=== PATIENT | female | born 1990 | race Caucasian/White ===

== ENCOUNTER 2022-08-14 08:19 | Outpatient (RCR) | payer OTHER, SELFPAY | END 2022-08-22 14:00 | disposition home or self-care (01) | LOC: PT 08:19 | PROVIDERS: PCP Nurse Practitioner Family; Visit Provider Podiatrist Foot & Ankle Surgery | DX: M72.2 Plantar fascial fibromatosis (principal) | CPT/HCPCS: 97110; 97140 ==

== ENCOUNTER 2022-08-27 21:15 | Emergency (ER) | payer OTHER, SELFPAY ==
[2022-08-27 21:20] VITALS: BP 138/95; PULSE 82; RESP 14; TEMP 36.8; O2SAT 98; BMI 38.3
--- NOTE | 2022-08-27 21:28 | XR_ITS ---
[address] [address] Patient Name: GIBRAN HAINES MRN: [id number] date: 1990 Sex: F Assigned Patient Location: ER Current Patient Location: ED.MAIN Accession/Order Number: [id number] Exam Date: 08/27/2022 21:40 Report Date: 08/27/2022 22:09 At the request of: SYLVIA BONILLA Procedure: XR shoulder RT min 2V EXAM: XR shoulder RT min 2V HISTORY: Shoulder pain COMPARISON: None. TECHNIQUE: 3 views FINDINGS: No osseous lesion, fracture, dislocation or subluxation. Joint spaces are normal. No visualized effusion. No visualized soft tissue edema. IMPRESSION: Normal x-rays Electronically authenticated by: JANETT RIVERA Date: 08/27/2022 22:09
--- NOTE | 2022-08-27 22:30 | ED.UPPEXIN1 ---
HPI - Extremity Injury (Upper) General Chief Complaint: Extremity Injury, Upper Stated Complaint: SHOULDER PAIN Time Seen by Provider: 08/27/22 22:29 Source: patient Mode of arrival: walk-in Limitations: physical limitation History of Present Illness HPI narrative: patient got tripped up by her dog and fell, injuring the right shoulder when she landed on it with her arm tucked against her body. The occurred just before 5pm today and she took some excedrin for the pain. She went to work and while she could move the right shoulder, she had pain so her boss let her leave early to come here to get evaluated. No head or neck injury. No back pain. Related Data Home Medications Medication Instructions Recorded Confirmed cetirizine 10 mg tablet 10 mg PO DAILY 08/27/22 08/27/22 phentermine 37.5 mg capsule 37.5 mg PO DAILY 08/27/22 08/27/22 Allergies Allergy/AdvReac Type Severity Reaction Status Date / Time No Known Drug Allergies Allergy Verified 08/27/22 21:28 [facility] Social History Smoking status: Current every day smoker Exam Narrative Exam Narrative: Nurses note and vital signs reviewed and patient is not hypoxic. afebrile General: The patient appears well and in no apparent distress. Patient is resting comfortably on cart. GCS = 15. Skin: Warm, dry, no pallor noted. Head: Normocephalic, atraumatic Neck: Supple, trachea mid-line. Full ROM and no cervical spinal tenderness. Eyes: PERRLA, EOMI Cardiovascular: normal peripheral perfusion Respiratory: Patient is in no distress, no accessory muscle use Chest Wall: no tenderness, no flail chest, contusion, abrasion, or signs of trauma. Back: No thoracic or lumbar tenderness to palpation. right posterior shoulder soft tissue tenderness. Musculoskeletal: tenderness along the distal right clavicle and the anterior and superior portion of the right shoulder. no additional sign of long bone fracture, no right elbow or wrist tenderness or swelling. Pain when she moves the right shoulder into flexion and abduction. Moves remaining extremities in all modalities with 5/5 strength. 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 Psychiatric: Cooperative Constitutional Vital Signs - 24 hr 08/27/22 21:20 Temperature 98.2 F Pulse Rate [Monitor] 82 Respiratory Rate 14 Blood Pressure [Left Arm] 138/95 H Pulse Oximetry 98 Oxygen Delivery Method Room Air Course Vital Signs Vital signs: Vital Signs Temperature 98.2 F 08/27/22 21:20 Pulse Rate 82 08/27/22 21:20 Respiratory Rate 14 08/27/22 21:20 Blood Pressure 138/95 H 08/27/22 21:20 Pulse Oximetry 98 08/27/22 21:20 Oxygen Delivery Method Room Air 08/27/22 21:20 Temperature 98.2 F 08/27/22 21:20 Pulse Rate 82 08/27/22 21:20 Respiratory Rate 14 08/27/22 21:20 Blood Pressure 138/95 H 08/27/22 21:20 Pulse Oximetry 98 08/27/22 21:20 Oxygen Delivery Method Room Air 08/27/22 21:20 MDM - Extremity Injury (Upper) Imaging Data right shoulder xray: Radiologist's impression: Patient Name: GIBRAN HAINES MRN: [facility]:[id number] date: 1990 Sex: F Assigned Patient Location: ER Current Patient Location: ED.MAIN Accession/Order Number: [id number] Exam Date: 08/27/2022 21:40 Report Date: 08/27/2022 22:09 At the request of: SYLVIA BONILLA Procedure: XR shoulder RT min 2V EXAM: XR shoulder RT min 2V HISTORY: Shoulder pain COMPARISON: None. TECHNIQUE: 3 views FINDINGS: No osseous lesion, fracture, dislocation or subluxation. Joint spaces are normal. No visualized effusion. No visualized soft tissue edema. IMPRESSION: Normal x-rays Electronically authenticated by: JANETT RIVERA Date: 08/27/2022 22:09 Discharge Plan Discharge Chief Complaint: Extremity Injury, Upper Clinical Impression: Sprain of right shoulder Patient Disposition: Home, Self-Care Time of Disposition Decision: 22:41 Prescriptions / Home Meds: No Action cetirizine 10 mg tablet 10 mg PO DAILY phentermine 37.5 mg capsule 37.5 mg PO DAILY Instructions: Shoulder Sprain (ED) Stand Alone Forms: Portal Instructions Referrals: HERNANDO BOLAND [Primary Care Provider] - 1 week
== END 2022-08-27 22:57 | disposition home or self-care (01) ==
PROVIDERS: Emergency Provider Emergency Medicine; PCP Nurse Practitioner Family
DX: S43.401A Unspecified sprain of right shoulder joint, initial encounter (principal); W01.0XXA Fall on same level from slipping, tripping and stumbling without subsequent striking against object, initial encounter; F17.210 Nicotine dependence, cigarettes, uncomplicated
CPT/HCPCS: 73030; 99283

== ENCOUNTER 2023-06-15 16:24 | Outpatient (OUT) | payer OTHER, SELFPAY ==
--- NOTE | 2023-06-15 | XR_ITS ---
The [address] [address] Patient Name: GIBRAN HAINES MRN: [id number] date: 1990 Sex: F Assigned Patient Location: [facility] Current Patient Location: Accession/Order Number: [id number] Exam Date: 06/15/2023 16:30 Report Date: 06/17/2023 07:08 At the request of: CATY CHISHOLM Procedure: XR abdomen 1V EXAMINATION: XR abdomen 1V HISTORY: bilateral kidney stones COMPARISON: XR KUB 12/13/2021 FINDINGS: KIDNEY/URETER - RIGHT: No visible renal or ureteral calcifications. KIDNEY/URETER - LEFT: Tiny calcifications suspected within mid body of kidney. PELVIS: No visible ureteral stones. BOWEL: No abnormal dilation or deviation. BONES: No acute abnormality. OTHER: Negative. No abnormal gaseous collections. XR/XR abdomen 1V IMPRESSION: 1. Grossly stable left nephrolithiasis. Evaluation is limited by dense overlying bowel content. Electronically authenticated by: MISBAH DEGROOT Date: 06/17/2023 07:08
== END 2023-06-15 16:25 | disposition home or self-care (01) ==
LOC: RAD 16:28
PROVIDERS: PCP Nurse Practitioner Family; Visit Provider Urology
DX: N20.0 Calculus of kidney (principal)
CPT/HCPCS: 74018

== ENCOUNTER 2023-08-06 20:01 | Outpatient (REF) | payer OTHER, SELFPAY ==
[2023-08-06 20:34] LABS: Internal Control Within Normal Limits; Occult Blood Negative
[2023-08-12 17:09] LABS: Ova + Parasite Exam Final report (.)
== END 2023-08-06 20:02 | disposition home or self-care (01) ==
LOC: LAB 20:01
PROVIDERS: PCP Nurse Practitioner Family; Visit Provider Nurse Practitioner Family
DX: K92.1 Melena (principal)
CPT/HCPCS: 87177; 87209; G0328

== ENCOUNTER 2023-10-12 17:37 | Outpatient (OUT) | payer OTHER, SELFPAY ==
--- NOTE | 2023-10-12 17:56 | XR_ITS ---
The [address] [address] Patient Name: GIBRAN HAINES MRN: [id number] date: 1990 Sex: F Assigned Patient Location: [facility] Current Patient Location: Accession/Order Number: [id number] Exam Date: 10/12/2023 18:00 Report Date: 10/13/2023 08:20 At the request of: HERNANDO BOLAND Procedure: XR lumbar spine 2-3V EXAMINATION: XR thoracic spine 2V, XR lumbar spine 2-3V HISTORY: Back Pain M54.9 COMPARISON: No relevant comparison available. FINDINGS: BONES: Normal alignment of the thoracic and lumbar vertebral bodies with no acute fracture or spondylolisthesis. Mild degenerative spondylosis and facet osteoarthropathy DISC SPACES: Normal. No significant disc height narrowing, subluxation, or endplate abnormality. PARASPINOUS: Negative. No paraspinous abnormality is seen. OTHER: Negative. XR/XR lumbar spine 2-3V IMPRESSION: Mild degenerative changes thoracic and lumbar spine Electronically authenticated by: JANETT OTT Date: 10/13/2023 08:20
--- NOTE | 2023-10-12 17:56 | XR_ITS ---
The [place] [id number] Patient Name: GIBRAN HAINES MRN: [id number] date: 1990 Sex: F Assigned Patient Location: [facility] Current Patient Location: Accession/Order Number: [id number] Exam Date: 10/12/2023 18:00 Report Date: 10/13/2023 08:20 At the request of: HERNANDO BOLAND Procedure: XR thoracic spine 2V EXAMINATION: XR thoracic spine 2V, XR lumbar spine 2-3V HISTORY: Back Pain M54.9 COMPARISON: No relevant comparison available. FINDINGS: BONES: Normal alignment of the thoracic and lumbar vertebral bodies with no acute fracture or spondylolisthesis. Mild degenerative spondylosis and facet osteoarthropathy DISC SPACES: Normal. No significant disc height narrowing, subluxation, or endplate abnormality. PARASPINOUS: Negative. No paraspinous abnormality is seen. OTHER: Negative. XR/XR thoracic spine 2V IMPRESSION: Mild degenerative changes thoracic and lumbar spine Electronically authenticated by: JANETT OTT Date: 10/13/2023 08:20
== END 2023-10-12 17:38 | disposition home or self-care (01) ==
PROVIDERS: PCP Nurse Practitioner Family; Visit Provider Nurse Practitioner Family
DX: M54.9 Dorsalgia, unspecified (principal); M51.35 Other intervertebral disc degeneration, thoracolumbar region
CPT/HCPCS: 72070; 72100

== ENCOUNTER 2023-12-07 08:23 | Outpatient (OUT) | payer OTHER, SELFPAY ==
--- OUTSIDE RECORDS SUMMARY | 2023-12-07 08:43 | XMS_ITS | CCD ---
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 Stephanie Hastings EGFR-NON AF [place] >60 Normal >=60 [facility] Comment on above: Performed By: #### L IPID, CMP, T7, TSH #### [facility] [address] [place] [address] [address] Stephanie Hastings Globulin (S) [Mass/Vol] 3.7 g/dL Normal [facility] Comment on above: Performed By: #### L IPID, CMP, T7, TSH #### [facility] [address] [place] [address] [address] Stephanie Hastings Glucose [Mass/Vol] 92 mg/dL Normal 74-106 [facility] Comment on above: Performed By: #### L IPID, CMP, T7, TSH #### [facility] [address] [place] [address] [address] Stephanie Hastings Potassium [Moles/Vol] 4.0 mmol/L Normal 3.5-5.1 [facility] Comment on above: Performed By: #### L IPID, CMP, T7, TSH #### [facility] [address] [place] [address] Dr. Stephanie Hastings Protein [Mass/Vol] 7.2 g/dL Normal 6.4-8.2 [facility] Comment on above: Performed By: #### L IPID, CMP, T7, TSH #### [facility] [address] [place] [address] Dr. Stephanie Hastings Sodium [Moles/Vol] 141 mmol/L Normal 136-145 [facility] Comment on above: Performed By: #### L IPID, CMP, T7, TSH #### [facility] [address] [place] [address] Dr. Stephanie Hastings Urea nitrogen [Mass/Vol] 10.0 mg/dL Normal 7.0-18.0 [facility] Comment on above: Performed By: #### L IPID, CMP, T7, TSH #### [facility] [address] [place] [address] Dr. Stephanie Hastings Urea nitrogen/Creatinine [Mass ratio] 16.7 mg/mg Normal [facility] Comment on above: Performed By: #### L IPID, CMP, T7, TSH #### [facility] [address] [place] [address] Dr. Stephanie Hastings TSHon 08-05-2022 TSH 0.920 uIU/mL Normal 0.358-3.740 [facility] Comment on above: Performed By: #### L IPID, CMP, T7, TSH #### [facility] [address] [place], [place] [address] Dr. Stephanie Hastings VITAMIN D 25 OHon 08-05-2022 VIT D 25-OH 18.0 ng/mL Normal [facility] Comment on above: Performed By: #### L IPID, CMP, T7, TSH #### [facility] [address] [place], [place] [address] Dr. Stephanie Hastings VIT D RANGES SEE BELOW Normal [facility] Comment on above: Result Comment: <20 ng/mL Vit D deficient 20 - <30 ng/mL Vit D insufficient 30 - 100 ng/mL Vit D sufficient >100 ng/mL Potential Toxicity Performed By: #### L IPID, CMP, T7, TSH #### [facility] [address] [place], [place] [address] Dr. Stephanie Hastings XR CHEST 2 Von 08-05-2022 XR CHEST 2 V EXAM: XR CHEST 2 V HISTORY: Nicotine dependence COMPARISON: None. TECHNIQUE: PA and lateral views of the chest. FINDINGS: The cardiomediastinal silhouette is normal. No focal consolidation is identified. There is no pneumothorax. No pleural effusion is noted. The osseous structures are intact. IMPRESSION: No acute cardiopulmonary process. Electronically authenticated by: HEMANTH MEJÍA Date: 2022-08-05 10:55 Normal [facility] MRI ANKLE LT WO CONon 2022 MRI ANKLE LT WO CON HISTORY: Chronic lef t heel pain for the past 6 months. No known injury. MRI ANKLE LT WO CON: 07/02/2022 10:19 AM EDT COMPARISON: Radiographs of the left foot 03/20/2022. TECHNIQUE: Multiplanar, multisequence MRI images of the ankle were obtained without contrast. FINDINGS: A few images are slightly degraded by motion artifact. LIGAMENTS: The anterior talofibular ligament appears within normal limits. The calcaneofibular ligament, posterior talofibular ligament, and distal tibiofibular ligaments appear within normal limits. The deltoid ligament complex appears within normal limits. TENDONS: There is mild thickening and intermediate signal intensity of the Achilles tendon. The other tendons of the ankle appear within normal limits. SINUS TARSI AND TARSAL TUNNEL: No space-occupying mass is seen in the tarsal tunnel or the sinus tarsi. BONES AND JOINTS: The bone marrow signal intensity is age appropriate. No unstable osteochondral defect of the tibiotalar joint is identified. There is a small os trigonum posterior to the body of the talus, but no bone marrow edema-like signal is seen in this region. There is a small amount of fluid signal intensity within a joint recess posterior to the posterior subtalar joint in this region. PLANTAR FASCIA: There is a moderate-sized plantar calcaneal enthesophyte again seen. There appears to be mild thickening and intermediate signal intensity of the central band of the plantar fascia at its attachment to the calcaneus in this region. SOFT TISSUES: No significant soft tissue swelling is seen. IMPRESSION: 1. There appears to be probable mild plantar fasciitis involving the proximal portion of the central band of the plantar fascia at its attachment to the calcaneus where there is a moderate-sized plantar calcaneal enthesophyte. 2. Mild tendinopathy of the Achilles tendon. 3. No ligament injury is seen. 4. There is a small os trigonum, but no bone marrow edema-like signal is seen in this region and this is of uncertain clinical significance. Electronically authenticated by: LARRY ALMEIDA Date: 2022-07-03 11:01 Normal [facility] XR FOOT JAZZY MIN 3 VIEWSon XR FOOT JAZZY MIN 3 VIEWS EXAMINATION: XR FOOT JAZZY MIN 3 VIEWS HISTORY: Pain in both feet COMPARISON: No relevant comparison available. FINDINGS: RIGHT FINDINGS: BONES: Normal. Minimal plantar enthesopathic spurring. SOFT TISSUES: Negative. No visible soft tissue swelling. OTHER: Negative. LEFT FINDINGS: BONES: Normal. Minimal plantar enthesopathic spurring. SOFT TISSUES: Negative. No visible soft tissue swelling. OTHER: Negative. IMPRESSION: RIGHT CONCLUSION: Minimal plantar enthesopathic spurring LEFT CONCLUSION: Minimal plantar enthesopathic spurring Electronically authenticated by: JANETT OTT Date: 2022-03-20 10:35 Normal [facility] Covid-19 PCR (CVDTB)on 02-13 SARS-CoV-2 (COVID-19) RNA MONROE+probe Ql (Unsp spec) Not detected Normal NOT DETECTED [facility] Comment on above: Result Comment: This test is not yet approved or cleared by the [place] FDA. When there are no FDA-approved or cleared tests available, and other criteria are met, FDA can make tests available under an emergency access mechanism called an Emergency Use Authorization (EUA). The EUA for this test is supported by the [place] of Health and Human Service's (HHS's) declaration that circumstances exist to justify the emergency use of in vitro diagnostics for the detection and/or diagnosis of the virus that causes COVID-19. This EUA will remain in effect (meaning this test can be used) for the duration of the COVID-19 declaration justifying emergency of IVDs, unless it is terminated or revoked by FDA (after which the test may no longer be used). When diagnostic testing is negative, the possibility of a false negative should be considered in the context of a patient's recent exposures and the presence of clinical signs and symptoms consistent with SARS-CoV-2. Performed By: #### C VDTBH #### [facility] [address] [place] [address] Dr. Stephanie Hastings INFLUENZA A AND B AGon 02-24 INFLUBNEG SEE BELOW Normal [facility] Comment on above: Result Comment: Nega tive for Flu B protein antigen. Infection due to Flu B cannot be ruled out. Flu B antigen in the sample may be below the detection limit of the test. Performed By: #### L IPID, CMP, T7, TSH #### [facility] [address] [place] [address] Dr. Stephanie Hastings INFLUENZA A AG Positive Abnormal NEGATIVE SEE COMMENT [facility] Comment on above: Performed By: #### L IPID, CMP, T7, TSH #### [facility] [address] [place] [address] Dr. Stephanie Hastings INFLUENZA B AG Negative Normal NEGATIVE SEE COMMENT [facility] Comment on above: Performed By: #### L IPID, CMP, T7, TSH #### [facility] [address] [place] [address] Dr. Stephanie Hastings INFLUPOSH SEE BELOW Normal [facility] Comment on above: Result Comment: NOTE : Live attenuated influenzae vaccine viruses can cause a positive result for a rapid influenza diagnostic test if administered up to 7 days prior to rapid testing. Performed By: #### L IPID, CMP, T7, TSH #### [facility] [address] [place], [place] [address] Dr. Stephanie Hastings INTERNAL CONTROLS Within Normal Limits Normal Wi thin Normal Limits [facility] Comment on above: Performed By: #### L IPID, CMP, T7, TSH #### [facility] [address] [place], [place] [address] Dr. Stephanie Hastings Covid-19 PCR (CVDTBH)on 12-15 SARS-CoV-2 (COVID-19) RNA MONROE+probe Ql (Unsp spec) Not detected Normal NOT DETECTED [facility] Comment on above: Result Comment: When diagnostic testing is negative, the possibility of a false negative should be considered in the context of a patient's recent exposures and the presence of clinical signs and symptoms consistent with SARS-CoV-2. This test is not yet approved or cleared by the [place] FDA. When there are no FDA-approved or cleared tests available, and other criteria are met, FDA can make tests available under an emergency access mechanism called an Emergency Use Authorization (EUA). The EUA for this test is supported by the [place] of Health and Human Service's declaration that circumstances exist to justify the emergency use of in vitro diagnostics for the detection and/or diagnosis of the virus that causes COVID-19. This EUA will remain in effect for the duration of the COVID-19 declaration justifying emergency of IVDs, unless it is terminated or revoked by the FDA (after which the test may no longer be used). Performed By: #### C VDTBH #### [facility] [address] [place], [place] [address] Dr. Stephanie Hastings Covid-19 PCR (CVDTBH)on SARS-CoV-2 (COVID-19) RNA MONROE+probe Ql (Unsp spec) Not detected Normal NOT DETECTED [facility] Comment on above: Result Comment: When diagnostic testing is negative, the possibility of a false negative should be considered in the context of a patient's recent exposures and the presence of clinical signs and symptoms consistent with SARS-CoV-2. This test is not yet approved or cleared by the [place] FDA. When there are no FDA-approved or cleared tests available, and other criteria are met, FDA can make tests available under an emergency access mechanism called an Emergency Use Authorization (EUA). The EUA for this test is supported by the [place] of Health and Human Service's declaration that circumstances exist to justify the emergency use of in vitro diagnostics for the detection and/or diagnosis of the virus that causes COVID-19. This EUA will remain in effect for the duration of the COVID-19 declaration justifying emergency of IVDs, unless it is terminated or revoked by the FDA (after which the test may no longer be used). Performed By: #### C VDTB #### [facility] [address] [place] [address] Dr. Stephanie Hastings XR KUB 1 VIEWon 12-15-2021 XR KUB 1 VIEW EXAMINATION: XR KUB 1 VIEW HISTORY: Kidney stone COMPARISON: 07/11/2021 FINDINGS: KIDNEY/URETER - RIGHT: No visible renal or ureteral calcifications. KIDNEY/URETER - LEFT: No visible renal or ureteral calcifications. PELVIS: No visible ureteral calcifications. Any visible calcifications favor phleboliths. BOWEL: No abnormal dilation or deviation. BONES: No acute abnormality. OTHER: Negative. No abnormal gaseous collections. IMPRESSION: No definite urinary tract calculi Electronically authenticated by: JANETT OTT Date: 2021-12-15 11:21 Normal [facility] CULTURE URINEon 12-13-2021 CULTURE URINE Culture Observations : LIGHT GROWTH OF MIXED GENITAL KARYN. NO POTENTIAL PATHOGENS SEEN. Normal [facility] Comment on above: Performed By: #### L IPID, CMP, T7, TSH #### [facility] [address] [place] [address] Dr. Stephanie Hastings UA RANDOMon 12-13-2021 Bilirubin Ql (U) Negative Normal NEGATIVE [facility] Comment on above: Performed By: #### U A #### [facility] [address] [place] [address] Dr. Stephanie Hastings Clarity (U) CLEAR Normal CLEAR [facility] Comment on above: Performed By: #### U A #### [facility] [address] [place] [address] Dr. Stephanie Hastings Color (U) LT. YELLOW Normal YELLOW [facility] Comment on above: Performed By: #### U A #### [facility] [address] [place] [address] [address] Stephanie Hastings Glucose Ql (U) Negative Normal NEGATIVE [facility] Comment on above: Performed By: #### U A #### [facility] [address] [place] [address] Dr. Stephanie Hastings Hemoglobin Ql (U) Negative Normal NEGATIVE [facility] Comment on above: Performed By: #### U A #### [facility] [address] [place] [address] [address] Stephanie Hastings Ketones Ql (U) Negative Normal NEGATIVE [facility] Comment on above: Performed By: #### U A #### [facility] [address] [place] [address] Dr. Stephanie Hastings LEUKOCYTES Negative Normal NEGATIVE [facility] Comment on above: Performed By: #### U A #### [facility] [address] [place] [address] Dr. Stephanie Hastings Nitrite Ql (U) Negative Normal NEGATIVE [facility] Comment on above: Performed By: #### U A #### [facility] [address] [place] [address] Dr. Stephanie Hastings pH (U) 6.0 [pH] Normal 5-9 [facility] Comment on above: Performed By: #### U A #### [facility] [address] [place] [address] Dr. Stephanie Hastings SPEC GRAVITY 1.010 Normal 1.005-<=1.025 [facility] Comment on above: Performed By: #### U A #### [facility] [address] [place] [address] Dr. Stephanie Hastings UA PROTEIN Negative Normal NEGATIVE/ TRACE [facility] Comment on above: Performed By: #### U A #### [facility] [address] [place] [address] Dr. Stephanie Hastings Urobilinogen Qn (U) 0.2 {Sunita'U}/dL Normal 0.2 - 1. 0 [facility] Comment on above: Performed By: #### U A #### [facility] [address] [place], [place] [address] Dr. Stephanie Hastings US KIDNEYSon 12-13-2021 US KIDNEYS EXAMINATION: US KIDNEYS HISTORY: Urinary tract infectious disease COMPARISON: No relevant comparison available. TECHNIQUE: Ultrasound examination was performed of the bladder. FINDINGS: Right Kidney: Normal in size, contour and echotexture. No solid cortical mass, hydronephrosis or obstructing nephrolithiasis. The cortex measures 1.7 cm Height: 6.0 cm Length: 11.4 cm Width: 5.4 cm Left Kidney: Normal in size, contour and echotexture. No solid cortical mass or hydronephrosis. 4 mm nonobstructing nephrolith Height: 5.1 cm Length: 10.3 cm Width: 5.2 cm Normal appearance of the urinary bladder: 348 IMPRESSION: 4 mm nonobstructing left nephrolith Electronically authenticated by: JANETT OTT Date: 2021-12-13 18:02 Normal [facility] Covid-19 PCR (CVDTB)on 10-16 SARS-CoV-2 (COVID-19) RNA MONROE+probe Ql (Unsp spec) Not detected Normal NOT DETECTED [facility] Comment on above: Result Comment: When diagnostic testing is negative, the possibility of a false negative should be considered in the context of a patient's recent exposures and the presence of clinical signs and symptoms consistent with SARS-CoV-2. This test is not yet approved or cleared by the [place] FDA. When there are no FDA-approved or cleared tests available, and other criteria are met, FDA can make tests available under an emergency access mechanism called an Emergency Use Authorization (EUA). The EUA for this test is supported by the [place] of Health and Human Service's declaration that circumstances exist to justify the emergency use of in vitro diagnostics for the detection and/or diagnosis of the virus that causes COVID-19. This EUA will remain in effect for the duration of the COVID-19 declaration justifying emergency of IVDs, unless it is terminated or revoked by the FDA (after which the test may no longer be used). Performed By: #### L IPID, CMP, T7, TSH #### [facility] [address] [place], [place] [address] Dr. Stephanie Hastings XR KNEE JAZZY 4V or >on 2021 XR KNEE JAZZY 4V or > EXAMINATION: XR KNEE JAZZY 4V or > HISTORY: Pain of joint of knee COMPARISON: No relevant comparison available. FINDINGS: RIGHT FINDINGS: BONES: Normal. No significant arthropathy or acute abnormality. SOFT TISSUES: Negative. No visible soft tissue swelling. OTHER: Negative. LEFT FINDINGS: BONES: Normal. No significant arthropathy or acute abnormality. SOFT TISSUES: Negative. No visible soft tissue swelling. OTHER: Small suprapatellar joint effusion IMPRESSION: RIGHT CONCLUSION: No acute abnormality LEFT CONCLUSION: Minimal joint effusion Electronically authenticated by: JANETT OTT Date: 2021-10-03 16:38 Normal [facility] ELECTROLYTESon 08-29-2021 Anion gap [Moles/Vol] 10.1 mmol/L Normal [facility] Comment on above: Performed By: #### E LEC #### [facility] [address] [place] [address] Dr. Stephanie Hastings Chloride [Moles/Vol] 103 mmol/L Normal 98-107 [facility] Comment on above: Performed By: #### E LEC #### [facility] [address] [place] [address] Dr. Stephanie Hastings CO2 [Moles/Vol] 29.1 mmol/L Normal 21.0-32.0 [facility] Comment on above: Performed By: #### E LEC #### [facility] [address] [place] [address] Dr. Stephanie Hastings Potassium [Moles/Vol] 4.2 mmol/L Normal 3.5-5.1 [facility] Comment on above: Performed By: #### E LEC #### [facility] [address] [place] [address] Dr. Stephanie Hastings Sodium [Moles/Vol] 138 mmol/L Normal 136-145 [facility] Comment on above: Performed By: #### E LEC #### [facility] [address] [place] [address] Dr. Stephanie Hastings Culture, Miscellaneous/SM Ba cton 06-29-2017 Culture, Miscellaneous/SM Bact BILL#: [id number] : 88 AGE: SEX:FMICHELLESOURCE: WOUND/ABSCESS COLLECTED: 06/29/17 16:37ANTIBIOTICS AT [facility].: RECEIVED : 06/29/17 23:54SITE: GENTAL LESIONR E S U L T SGRAM STAIN FINAL 06/30/17 12:362+ GRANULOCYTES. NO ORGANISMS SEEN.MISCELLANEOUS CULT./SM.BACT. FINAL 07/02/17 09:051+MIXED SKIN FLORA4+ANAEROBIC MIXED BACTERIAISOLATE1 : Staphylococcus aureus1+METHICILLIN(OX ACILLIN)SUSCEPTIBLE STAPHYLOCOCCIARE SUSCEPTIBLE TO SEMI-SYNTHETIC PENICILLINS(OXACILLIN, NAFCILLIN, ETC),BETA-LACTAM/BETA- LACTAMASEINHIBITOR COMBINATIONS(INCLUDING AMPICILLIN/SULBACTAM,A MOXICILLIN/CLAVULANATE AND PIPERACILLIN/TAZOBACTA M),CARBAPENEMS AND CEPHALOSPORINS APPROVED FOR USE BYTHE FDA FOR STAPHYLOCOCCAL INFECTIONS. Organism S aureusAntibiotic BP INTRP Ampicillin RClindamycin RCiprofloxacin SErythromycin RGentamicin SLevofloxacin SOxacillin SPenicillin RTrimeth/Sulfa STetracycline SVancomycin S S=SUSCEPT IBLE I=INTERMEDIATE R=RESISTANT SDD=SUSCEPTIBLE DOSEDEPENDENTNS=NONSUS CEPTIBLEX=REPORTED IN ERROR Normal [facility] Comment on above: Performed By: #### C XMIS ####[facility] [address] [place] [address] HIV-1,2 Combo Ag/Ab, W/Rfx t o Confirmon 06-22-2017 HIV 1-2 Combo Ag/Ab NON REACTIVE Normal NONREACTIVE [facility] Comment on above: Result Comment: HIV Ag/Ab screen is performed using the Siemens AdviaCentaur HIV Ag/Ab Combo assay which detects the presenceof HIV p24 antigen as well as antibodies to HIV-1(Group M and O) and HIV-2. HSV Cult W/Rfx Typingon Culture Source Cerv/Gen Lesion Normal [facility] Comment on above: Performed By: #### [id number] ####[id number] [place] [address] HSV Culture Final SEE NOTE Normal [facility] Comment on above: Result Comment: Cult ure Negative for Herpes Simplex VirusPerformed by [facility],[address] [place] [address],[place] [address] [email or web address], Felipe Cano MD - Lab. Director Performed By: #### [id number] ####[id number] [place] [address] HSV Culture Preliminary SEE NOTE Normal [facility] Comment on above: Result Comment: Spec imen received and in progress.Performed by [facility],[address] [place] [id number] ian.[employer], Felipe Cano MD - Lab. Director Performed By: #### [id number] ####[id number] [place] [address] HSV Qnt1 and/or 2 Ab,IgG & I gM Rfxon 06-22-2017 HSV 1/2 Ab IgG 1.03 IV [facility] Comment on above: Result Comment: Spec imen tested negative for Herpes Simplex Virus Type 1and/or Type 2 Antibodies, IgG. No additional testing will beadded.INTERPRETIVE INFORMATION: HSV 1/2 COMBINED Ab SCREEN, IgG0.89 IV or less.........Not Detected0.90-1.09 IV............Indeterminate- Repeat testingin 10-14 days may be helpful.1.10 IV or greater......DetectedThe best evidence for current infection is a significantchange on two appropriately timed specimens, where both testsare done in the same laboratory at the same time.Performed by [facility],[address] [place] [id number] gss.Telx, Felipe Cano MD - Lab. Director Performed By: #### H [facility] ####[id number] [place] [address] HSV 1/2 Ab IgM 0.37 IV Normal <=0.89 [facility] Comment on above: Result Comment: INTE RPRETIVE INFORMATION: Herpes Simplex Virus Type 1 and/or 2Antibodies, IgM by ELISA0.89 IV or Less .......... Not Detected0.90 - 1.09 IV ........... Indeterminate- Repeat testing in10-14 days may be helpful.1.10 IV or Greater ....... Detected-IgM antibody to HSVdetected, which may indicate acurrent or recent infection.However, low levels of IgMantibodies may occasionallypersist for more than 12months post-infection. Performed By: #### H [facility] ####[id number] [place] [address] Hepatitis B Surface Antigeno n 06-22-2017 Hepatitis B Surface Antigen NONREACTIVE Normal NONREACTIVE [facility] Comment on above: Result Comment: Amber ents receiving more than 5 mg/day of biotin may have interfin test results. A sample should be taken no sooner than eightafter previous dose. Contact [phone] for additional infor Hepatitis C Antibody w/rfx t o Confirmon 06-22-2017 Hepatitis C Antibody NON-REACTIVE Normal NONREACTIVE [facility] Comment on above: Result Comment: Amber ents receiving more than 5 mg/day of biotin may have interfin test results. A sample should be taken no sooner than eightafter previous dose. Contact [phone] for additional infor N. gonorrhoeae/C. trachomati s, Amplifiedon 06-22-2017 Chlamydia trachomatis, Amplified Negative Normal Negative [facility] Comment on above: Result Comment: A ne gative urine test for a female patient who is clinicallysuspected of having a chlamydial or gonococcal infectiondoes not rule out the presence of C.trachomatis orN.gonorrhoeae in the urogenital tract. Testing of anendocervical specimen is recommended in such cases. Performed By: #### G CCHA ####[facility] [id number] [place] [address] GC/CHLAM/TRICA Source Urine Normal [facility] Comment on above: Result Comment: The Aptima Combo 2 Assay is a FDA cleareddiagnostic test for the qualitative detectionof rRNA of GC/Chlamydia.Urine specimens were validated in house andthe performance characteristics show that theassay can detect GC/Chlamydia from this source.Positive results should be interpreted carefullyand in conjunction with patient signs and clinicalsymptoms in low prevalence populations. Performed By: #### G CCHA ####[facility] [address] [place] [address] Neisseria gonorrhoeae, Amplified Negative Normal Negative [facility] Comment on above: Performed By: #### [facility] ####[facility] [address] [place] [address] Syphilis IgG w/Rflx toTiter, TP-PAon 06-22-2017 Syphilis IgG w/Rflx toTiter,TP-PA NON REACTIVE Normal NONREACTIVE [facility] Comment on above: Result Comment: Amber ents receiving more than 5 mg/day of biotin may have interfin test results. A sample should be taken no sooner than eightafter previous dose. Contact [phone] for additional infor Vaginal Pathogen DNAon 06-22 Samanta Spec DNA Probe Negative Normal Negative [facility] Comment on above: Performed By: #### V AGPA ####[facility] [address] [place] [address] Umana Vag DNA Probe Positive Abnormal Negative [facility] Comment on above: Performed By: #### V AGPA ####[facility] [address] [place] [address] Trich Vag DNA Probe Negative Normal Negative [facility] Comment on above: Performed By: #### V AGPA ####[facility] [address] [place] [address] Culture, Urine Bacterialon 0 05-27-2017 Culture, Urine Bacterial BILL#: [id number] : 88 AGE: SEX:FSOURCE: URINE COLLECTED: 05/27/17 08:38ANTIBIOTICS AT CITLALI.: RECEIVED : 05/27/17 18:22SITE: UnspecifiedR E S U L T SURINE CULTURE,BACTERIAL FINAL 05/28/17 11:56NO GROWTH Normal [facility] Comment on above: Performed By: #### C XBUR ####[facility] [address] [place] [address] RIBS W/PA CXR MIN 3 VW RTon 05-27-2017 RIBS W/PA CXR MIN 3 VW RT DATE OF EXAM: May 27 2017 9:13AMCLINICAL HISTORY/ Name: ENRIQUE AMANDASTUDY:RIBS W/PA CXR MIN 3 VW RT; 05/27/2017 9:13 amINDICATION:Trauma.CO MPARISON:PA chest 07/24/2013CCESSION NUMBER(S):[id number] MEÑO CLINICIAN:MISBAH LOCKETECHKIRAQUE:Four views of the right ribs. PA view of the chestFINDINGS:No visible acute fractures, periosteal reaction, or osseous lesions. A radiopaque marker was placed in the area of concern. PA view of the chest demonstrates clear lungs.CONCLUSION: IMPRESSION:No visible acute right rib abnormality. No acute cardiopulmonary process. Normal [facility] SPINE C MIN 4 VIEWSon 2017 SPINE C MIN 4 VIEWS DATE OF EXAM: May 27 2017 9:13AMCLINICAL HISTORY/ Name: ENRIQUE AMANDASTUDY:SPINE C MIN 4 VIEWS; 05/27/2017 9:13 amINDICATION:Trauma.CO MPARISON:None.ACCESSIO N NUMBER(S):[id number] MEÑO CLINICIAN:MISBAH LOCKEFINGALINAS:Four views of the cervical spine. Straightening of the normal cervical lordosis. The vertebral body heights and disc spaces appear maintained. The posterior elements appear intact. The prevertebral soft tissues appear unremarkable. The neural foramina appear patent.CONCLUSION: IMPRESSION:No visible acute fractures or subluxations. Straightening of the normal cervical lordosis. Normal [facility] Urinalysis with Reflex Cultu reon 05-27-2017 Amorphous Crystal Many Normal None [facility] Comment on above: Performed By: #### U ARFX ####[address] [facility] [place] [address] Bilirubin Ql (U) Small Abnormal Negative [facility] Comment on above: Performed By: #### U [facility] ####[address] [place] [place] [address] Blood Large Abnormal Negative [facility] Comment on above: Performed By: #### U [facility] ####[address] [place] [address] Erythrocytes (RBC) 20-50 Normal 0-3 [facility] Comment on above: Performed By: #### U [facility] ####[address] [place] [address] Glucose mass conc Negative Normal Negative [facility] Comment on above: Performed By: #### U [facility] ####[address] [place] [address] Protein 100 mg/dL Abnormal Negative [facility] Comment on above: Performed By: #### U [facility] ####[address] [place] [address] Urine Microscopic Performed Normal [facility] Comment on above: Performed By: #### U ARFX ####[address] [place] [address] Urine, appearance Hazy Normal Clear [facility] Comment on above: Performed By: #### U [facility] ####[address] [place] [address] Urine, bacteria in sediment Few Normal None [facility] Comment on above: Performed By: #### U [facility] ####[address] [place] [address] Urine, color Luana Normal [facility] Comment on above: Performed By: #### U [facility] ####[address] [place] [address] Urine, ketones presence 5 mg/dL Abnormal Negative [facility] Comment on above: Performed By: #### U [facility] ####[address] [place] [address] Urine, nitrite presence Negative Normal Negative [facility] Comment on above: Performed By: #### U [facility] ####[address] [place] [address] Urine, pH 5.0 [pH] Normal 5.0-9.0 [facility] Comment on above: Performed By: #### U ARFX ####[address] [place] [address] Urine, specific gravity 1.034 Normal 1.003-1.035 [facility] Comment on above: Performed By: #### U ARFX ####[address] [place] [address] Urine, squamous cells in sediment Few Normal Few [facility] Comment on above: Performed By: #### U ARFX ####[address] [place] [address] Urine, urobilinogen 2.0 mg/dL Abnormal Negative [facility] Comment on above: Performed By: #### U AR[facility] ####[address] [place] [address] WBC (Leukocytes) 0-4 Normal 0-5 [facility] Comment on above: Performed By: #### U ARFX ####[address] [place] [address] WBC (Leukocytes) Trace Abnormal Negative [facility] Comment on above: Performed By: #### U ARFX ####[address] [facility] [place] [address] ANAon 03-04-2017 MAKAYLA Interpretation see below Normal [facility] Comment on above: Result Comment: MAKAYLA testing done in this laboratory uses a Hep-2 cellsubstrate. Although a negative MAKAYLA with this substrate isstrong evidence against the presence of SLE, a negative ANAdoes occur in approximately 3-5% of patients with otherwisetypical SLE. Many of the latter patients have anti-SSA (Ro)and/or anti-SSB(La)antibodies.If still clinically suspicious of SLE and the MAKAYLA is negative,consider repeating the test in 3-6 months, particularly ifthe clinical course changes.Sjogren's syndrome, scleroderma, rheumatoid arthritis, anddermato/polymyositis cannot be excluded on the basis of anegative MAKAYLA test. Tests appropriate for those disordersshould be considered if the clinical history, symptoms, andphysical findings are consistent with these diagnoses.Anti-SSA and anti-SSB are helpful in the evaluation ofSjogren's syndrome, anti-Scl-70 for scleroderma, bewaljp-Zq-3 for dermato/polymyositis. MAKAYLA Screen Negative Normal [facility] Serum HCG Qualitativeon 02-14 HCG.beta subunit Qn Negative Normal [facility] CBC With Platelet No Differe ntialon 03-03-2017 Erythrocyte distribution width Auto Ratio (RBC) 13.8 % Normal 11.5-14.5 [facility] Erythrocytes (RBC) 4.78 10*6/uL Normal 4.20-5.40 [facility] Hematocrit (HCT) 44.0 % Normal 37.0-47.0 [facility] Hemoglobin mass conc (Bld) 14.4 g/dL Normal 12.0-16.0 [facility] MCH 30.2 pg Normal 27.0-31.3 [facility] MCHC mass conc (RBC) 32.8 % Low 33.0-37.0 [facility] MCV 92.0 fL Normal 82.0-100.0 [facility] Platelets 305 10*3/uL Normal 130-400 [facility] WBC (Leukocytes) 10.3 10*3/uL Normal 4.8-10.8 [facility] Comprehensive Metabolic Pane alejandra 03-03-2017 Alanine aminotransferase (ALT) 16 U/L Normal 0-33 [facility] Albumin 4.0 g/dL Normal 3.9-4.9 [facility] Alkaline phosphatase (ALP) 73 U/L Normal 40-130 [facility] Anion gap 15 mmol/L Critically high 7-13 [facility] Comment on above: Result Comment: Reve rt to previous reference range.Effective: 02/26/2017 Aspartate aminotransferase (AST) 14 U/L Normal 0-35 [facility] Bilirubin (total) 0.4 mg/dL Normal 0.0-1.2 [facility] Calcium 9.2 mg/dL Normal 8.6-10.2 [facility] Chloride 101 mmol/L Normal 98-107 [facility] Comment on above: Result Comment: Reve rt to previous reference range.Effective: 02/26/2017 CO2 24 mmol/L Normal 22-29 [facility] Comment on above: Result Comment: Reve rt to previous reference range.Effective: 02/26/2017 Creatinine 0.45 mg/dL Low 0.50-0.90 [facility] eGFR (black) mL/min/{1.73_m2} Normal >60 [facility] Comment on above: Result Comment: >60 mL/min/1.73m2 EGFR, calc. for ages 18 and older using theMDRD formula (not corrected for weight), is valid for stablerenal function. eGFR (MDRD) mL/min/{1.73_m2} Normal >60 [facility] Comment on above: Result Comment: >60 mL/min/1.73m2 EGFR, calc. for ages 18 and older using theMDRD formula (not corrected for weight), is valid for stablerenal function. Globulin 2.7 g/dL Normal 2.3-3.5 [facility] Glucose mass conc 105 mg/dL Normal 74-109 [facility] Potassium molar conc 4.1 mmol/L Normal 3.5-5.1 [facility] Comment on above: Result Comment: Reve rt to previous reference range.Effective: 02/26/2017 Protein 6.7 g/dL Normal 6.4-8.1 [facility] Sodium 140 mmol/L Normal 132-144 [facility] Comment on above: Result Comment: Reve rt to previous reference range.Effective: 02/26/2017 Urea nitrogen 11 mg/dL Normal 6-20 [facility] Lipid Panelon 03-03-2017 Cholesterol 157 mg/dL Normal 0-199 [facility] Comment on above: Result Comment: ATP III Cholesterol classification is Desirable. HDL Cholesterol 45 mg/dL Normal 40-59 [facility] Comment on above: Result Comment: ATP III HDL Cholesterol Classification is Desirable.Expected Values:Males: >55 = No Risk 35-55 = Moderate Risk <35 = High RiskFemales: >65 = No Risk 45-65 = Moderate Risk <45 = High RiskNCEP Guidelines: Third Report July 2000>59 = negative risk factor for CHD<40 = major risk factor for CHD LDL Cholesterol 92 mg/dL Normal 0-129 [facility] Comment on above: Result Comment: ATP III LDL Classification is Optimal. Triglyceride 98 mg/dL Normal 0-200 [facility] Comment on above: Result Comment: ATP III Triglycerides Classification is Normal. Sedimentation Rateon 017 Sedimentation Rate 23 mm Critically high 0-20 [facility] TSH w/out Reflexon 7 Thyroid stimulating hormone (TSH) 1.820 uIU/mL Normal 0.270-4.[address] [facility] [address] ABDOMEN PELVIS W IV CONTR Alberto 11-25-2016 CT ABDOMEN PELVIS W IV CONTRAST EXAMINATION: CT ABDOMEN AND PELVIS W IV CONTRAST: DATE AND TIME: 11/25/2016 at 10:05 AM.CLINICAL HISTORY: ACUTE EPIGASTRIC PAIN.COMPARISON: 12/28/2015.TECHNIQUE: Contiguous axial CT sections of the abdomen and pelvis. 100 cc's of IV contrast given. All CT scans at this facility use dose modulation, iterative reconstruction, and/or weight based dosing when appropriate to reduce radiation dose to as low as reasonably achievable. FINDINGS: Punctate nonobstructing calculi in the left kidney. Small right renal cyst again noted. Appendix normal. There is no additional significant abnormality of the liver, spleen, pancreas, kidneys, adrenals, stomach, bowel, retroperitoneum, omentum, vascular structures, lung bases, bones, or soft tissues.IMPRESSION: NO ACUTE PATHOLOGY IN THE ABDOMEN OR PELVIS. NO CHANGE.Interpreted by:KRYSTAL Popigned by:Alexsander Jose MD11/26/16Final result Normal [facility] Vital Signs Date Time Vital Sign Value Performing Clinician Facility 06-26-2022 10:20040 Body height 156.21 cm Luana Garcia Other [facility] Other 06-26-2022 10:20-0400 Body mass index (BMI) [Ratio] 39.48 kg/m2 Luana Garcia Other [facility] Other 06-26-2022 10:20-0400 Body temperature 98.2 [degF] Luana Garcia Other [facility] Other 06-26-2022 10:20-0400 Body weight 96.34 kg Luana Garcia Other [facility] Other 06-26-2022 10:20-0400 Respiratory rate 18 /min Luana Garcia Other [facility] Other 06-26-2022 10:20-0400 SaO2% (BldA) [Mass fraction] 98 % Luana Garcia Other [facility] Other 02-10-2022 10:43-0500 Blood Pressure Location Zion CHISHOLM [facility] 02-10-2022 10:43-0500 Diastolic blood pressure 78 mm[Hg] Zion CHISHOLM [facility] 02-10-2022 10:43-0500 Heart rate 82 /min Zion CHISHOLM [facility] 02-10-2022 10:43-0500 Respiratory rate 16 /min Zion CHISHOLM [facility] 02-10-2022 10:43-0500 Systolic blood pressure 128 mm[Hg] Zion CHISHOLM [facility] 02-03-2022 10:35-0500 Body height 156.21 cm Cindi Noriega Other [facility] Other 02-03-2022 10:35-0500 Body mass index (BMI) [Ratio] 37.17 kg/m2 Cindi Noriega Other [facility] Other 02-03-2022 10:35-0500 Body temperature 97.6 [degF] Cindi Noriega Other [facility] Other 02-03-2022 10:35-0500 Body weight 90.72 kg Cindi Noriega Other [facility] Other 02-03-2022 10:35-0500 Respiratory rate 18 /min Cindi Noriega Other [facility] Other 02-03-2022 10:35-0500 SaO2% (BldA) [Mass fraction] 97 % Cindi Noriega Other [facility] Other 09-12-2021 16:00-0400 Body height 156.21 cm Cindi Noriega Other [facility] Other 09-12-2021 16:00-0400 Body mass index (BMI) [Ratio] 37.17 kg/m2 Cindi Noriega Other [facility] Other 09-12-2021 16:00-0400 Body temperature 97.9 [degF] Cindi Noriega Other [facility] Other 09-12-2021 16:00-0400 Body weight 90.72 kg Cindi Noriega Other [facility] Other 09-12-2021 16:00-0400 Diastolic blood pressure 80 mm[Hg] Cindi Daleault Other [facility] Other 09-12-2021 16:00-0400 Respiratory rate 18 /min Cindi Daleault Other [facility] Other 09-12-2021 16:00-0400 SaO2% (BldA) [Mass fraction] 98 % Cindi Noriega Other [facility] Other 09-12-2021 16:00-0400 Systolic blood pressure 117 mm[Hg] Cindi Daleault Other [facility] Other 07-29-2021 10:03-0400 Blood Pressure Location Zion CHISHOLM [facility] 07-29-2021 10:03-0400 Diastolic blood pressure 77 mm[Hg] Zion CHISHOLM [facility] 07-29-2021 10:03-0400 Heart rate 74 /min Zion CHISHOLM [facility] 07-29-2021 10:03-0400 Respiratory rate 16 /min Zionrichard CHISHOLM inFreeDA [facility] [employer] 07-29-2021 10:03-0400 Systolic blood pressure 133 mm[Hg] Zion CHISHOLM [facility] [employer] Encounters Encounter Date Encounter Type Care Provider Facility Start: 09-14-2023 End: 09-14-2023 ambulatory Zion CHISHOLM Facility:[facility] Start: 09-14-2023 End: 09-14-2023 Patient encounter procedure Zion CHISHOLM [facility] Start: 02-13-2023 ambulatory Zion CHISHOLM Facili ty:[facility] Start: 08-05-2022 End: 08-06-2022 ambulatory CHELSEA BOLAND Facility:[facility] Start: 07-14-2022 End: 08-13-2022 ambulatory SARAH CH Facility:[facility] Start: 07-02-2022 End: 07-03-2022 ambulatory CHELSEA BOLAND Facility:[facility] Start: 06-26-2022 End: 06-26-2022 ambulatory Luana Garcia Other [facility] Other Start: 06-26-2022 Office outpatient visit 15 minutes Luana Jose [facility] Start: 03-24-2022 End: 04-05-2022 ambulatory CHELSEA BOLAND Facility:[facility] Start: 03-20-2022 End: 03-21-2022 ambulatory CHELSEA BOLAND Facility:[facility] Start: 02-24-2022 End: 02-24-[address] LARRY AREVALO . Facility:[facility] Start: 02-10-2022 End: 02-10-2022 Patient encounter procedure Zion CHISHOLM [facility] Start: 02-03-2022 End: 02-03-2022 ambulatory Cindi Noriega Other [facility] Other Start: 02-03-2022 Office outpatient visit 15 minutes Cindi Noriega [facility] Start: 01-02-2022 End: 01-02-[address] LARRY AREVALO . Facility:[facility] Start: 12-18-2021 End: 12-18-2021 ambulatory CHELSEA BOLAND Facility:[facility] Start: 12-13-2021 End: 12-14-[address] ZION CHISHOLM . Facility:[facility] Start: 11-12-2021 End: 11-12-2021 ambulatory CHELSEA BOLAND Facility:[facility] Start: 10-03-2021 End: 10-04-[address] JANETT OTT Facility:[facility] Start: 09-12-2021 End: 09-12-2021 ambulatory Cindi Noriega [facility] [address] Other Start: 09-12-2021 Office outpatient ne w 20 minutes Cindi Noriega [facility] Start: 08-29-2021 End: 08-30-[address] ZION CHISHOLM . Facility:[facility] Start: 07-29-2021 End: 07-29-2021 Patient encounter procedure Zion CHISHOLM [facility] Start: 07-08-2017 Ambulatory Sarai Belcher Fac ility:[id number] Start: 06-29-2017 Ambulatory SARAI BELCHER Facility :[facility] Start: 06-29-2017 Ambulatory Sarai Belcher Fac ility:[id number] Start: 06-22-2017 Ambulatory PROVIDER UNKNOWN Facili ty:[facility] Start: 06-22-2017 Ambulatory YELENA AMADOR Facility :[id number] Start: 05-27-2017 End: 05-27-2017 Emergency department patient visit MISBAH LOCKE Facility:[id number] Start: 05-27-2017 Ambulatory YELENAANA AMADOR Facility :[id number] Start: 11-25-2016 End: 11-26-2016 Ambulatory KEIRY CHAVEZ [facility] Procedures Date Procedure Procedure Detail Performing Clinician Start: 04-19-2020 Extracorporeal shock wave lithotripsy of calculus of kidney Zion CHISHOLM Start: 11-25-2016 Ct abdomen & pelvis w/contrast material KEIRY CHAVEZ Abdominal hysterectomy Carla CHISHOLM Breast surgery (qual ifier value) Zion CHISHOLM History of hernia repair Yun CHISHOLM Tonsillectomy Zion CHISHOLM Payers Date Payer Category Payer Self-pay [id number] 1990 Unknown [id number] 2.16.84 [id number] 1989 Unknown [id number] 2.16.84 0.1.539132.3.579.2.593 1989 Unknown [id number] 2.16.84 0.1.542124.3.579.2.593 1989 Unknown [id number] 2.16.84 0.1.083780.3.579.2.593 1989 Unknown [id number] 2.16.84 0.1.217345.3.579.2.593 1989 Unknown [id number] 2.16.84 0.1.926051.3.579.2.593 1989 Unknown [id number] 2.16.84 0.1.749395.3.579.2.593 1989 Unknown [id number] 2.16.84 0.1.135568.3.579.2.593 1989 Unknown [id number] 2.16.84 0.1.853746.3.579.2.593 1989 Unknown [id number] 2.16.84 0.1.455145.3.579.2.593 1989 Unknown [id number] 2.16.84 0.1.520251.3.579.2.593 1989 Unknown [id number] 2.16.84 0.1.001119.3.579.2.593 1989 Unknown [id number] 2.16.8 40.1.274347.3.579.2.727 1989 Unknown [id number] 2.16.8 40.1.141315.3.579.2.727 1960 Medicaid [id number] 2. [id number] 1959 Unknown [id number] Unknown LORRAINE/SHAKTOOLIK TITLE XX . [id number] Unknown [id number] 2.16.8 40.1.590925.3.579.2.531 Social History Date Type Detail Facility Start: 07-29-2021 Tobacco smoking status Ex-smoker (fi nding) [facility] Sex Assigned At Female [facility] Start: 1990 Sex Assigned At Female F [facility] Functional Status Date Assessment Result Facility 02-10-2022 Functional Status N/A [facility] Clinical Notes 07-29-2021 to 06-01-2023 Note Date & Type Note Facility 06-01-2023 Hospital Discharg e instructions Follow Up Care 06/01/2023 09:18:49 With:PHAN GUAJARDO, Zion Cruz, URL Address: [facility] [address], [place] [address]- [phone] When: Unknown [facility] 06-26-2022 Evaluation note Encounter Date Diagnosis Assessment Notes Jun, Superficial skin infection (ICD-10 - L08.9) Discussed diagnosis with patient. Advised patient that I will send Rx of mupirocin ointment to use as directed to area. Advised to apply on Q-tip and then placed in canal. If symptoms do not improve over the next 7 days, follow-up with PCP. Immediate evaluation in ER for signs/symptoms as discussed. Patient verbalizes understanding and is agreeable with treatment plan. [facility] Other 11-28-2022 Hospital Discharge instructions Patient Education 02/10/2022 08:10:37 Dietary Guidelines to Help Prevent Kidney Stones Dietary Guidelines to Help Prevent Kidney Stones Kidney stones are deposits of minerals and salts that form inside your kidneys. Your risk of developing kidney stones may be greater depending on your diet, your lifestyle, the medicines you take, and whether you have certain medical conditions. Most people can reduce their chances of developing kidney stones by following the instructions below. Depending on your overall health and the type of kidney stones you tend to develop, your dietitian may give you more specific instructions. What are tips for following this plan? Reading food labels Choose foods with no salt added or low-salt labels. Limit your sodium intake to less than 1500 mg per day. Choose foods with calcium for each meal and snack. Try to eat about 300 mg of calcium at each meal.Foods that contain 200 500 mg of calcium per serving include: ?8 oz (237 ml) of milk, fortified nondairy milk, and fortified fruit juice. ?8 oz (237 ml) of kefir, yogurt, and soy yogurt. ?4 oz (118 ml) of tofu. ?1 oz of cheese. ?1 cup (300 g) of dried figs. ?1 cup (91 g) of cooked broccoli. ?1 3 oz can of sardines or mackerel. Most people need 1000 to 1500 mg of calcium each day. Talk to your dietitian about how much calciumis recommended for you. Shopping Buy plenty of fresh fruits and vegetables. Most people do not need to avoid fruits and vegetables, even if they contain nutrients that may contribute to kidney stones. When shopping for convenience foods, choose: ?Whole pieces of fruit. ?Premade salads with dressing on the side. ?Low-fat fruit and yogurt smoothies. Avoid buying frozen meals or prepared deli foods. Look for foods with live cultures, such as yogurt and kefir. Cooking Do not add salt to food when cooking. Place a salt shaker on the table and allow each person to addhis or her own salt to taste. Use vegetable protein, such as beans, textured vegetable protein (TVP), or tofu instead of meat in pasta, casseroles, and soups. Meal planning Eat less salt, if told by your dietitian. To do this: ?Avoid eating processed or premade food. ?Avoid eating fast food. Eat less animal protein, including cheese, meat, poultry, or fish, if told by your dietitian. To dothis: ?Limit the number of times you have meat, poultry, fish, or cheese each week. Eat a diet free of meat at least 2 days a week. ?Eat only one serving each day of meat, poultry, fish, or seafood. ?When you prepare animal protein, cut pieces into small portion sizes. For most meat and fish, one serving is about the size of one deck of cards. Eat at least 5 servings of fresh fruits and vegetables each day. To do this: ?Keep fruits and vegetables on hand for snacks. ?Eat 1 piece of fruit or a handful of berries with breakfast. ?Have a salad and fruit at lunch. ?Have two kinds of vegetables at dinner. Limit foods that are high in a substance called oxalate. These include: ?Spinach. ?Rhubarb. ?Beets. ?Potato chips and kinyarwanda fries. ?Nuts. If you regularly take a diuretic medicine, make sure to eat at least 1 2 fruits or vegetables high in potassium each day. These include: ?Avocado. ?Banana. ?Callahan, prune, carrot, or tomato juice. ?Baked potato. ?Cabbage. ?Beans and split peas. General instructions Drink enough fluid to keep your urine clear or pale yellow. This is the most important thing you can do. Talk to your health care provider and dietitian about taking daily supplements. Depending on your health and the cause of your kidney stones, you may be advised: ?Not to take supplements with vitamin C. ?To take a calcium supplement. ?To take a daily probiotic supplement. ?To take other supplements such as magnesium, fish oil, or vitamin B6. Take all medicines and supplements as told by your health care provider. Limit alcohol intake to no more than 1 drink a day for non women and 2 drinks a day for men. One drink equals 12 oz of beer, 5 oz of wine, or 1 oz of hard liquor. Lose weight if told by your health care provider. Work with your dietitian to find strategies and an eating plan that works best for you. What foods are not recommended? Limit your intake of the following foods, or as told by your dietitian. Talk to your dietitian about specific foods you should avoid based on the type of kidney stones and your overall health. Grains Breads. Bagels. Rolls. Baked goods. Salted crackers. Cereal. Pasta. Vegetables Spinach. Rhubarb. Beets. Canned vegetables. Pickles. Olives. Meats and other protein foods Nuts. Nut butters. Large portions of meat, poultry, or fish. Salted or cured meats. Deli meats. Hotdogs. Sausages. Dairy Cheese. Beverages Regular soft drinks. Regular vegetable juice. Seasonings and other foods Seasoning blends with salt. Salad dressings. Canned soups. Soy sauce. Ketchup. Barbecue sauce. Canned pasta sauce. Casseroles. Pizza. Lasagna. Frozen meals. Potato chips. Bulgarian fries. Summary You can reduce your risk of kidney stones by making changes to your diet. The most important thing you can do is drink enough fluid. You should drink enough fluid to keep your urine clear or pale yellow. Ask your health care provider or dietitian how much protein from animal sources you should eat eachday, and also how much salt and calcium you should have each day. This information is not intended to replace advice given to you by your health care provider. Make sure you discuss any questions you have with your health care provider. Document Released: 06/27/2011 Document Revised: 06/22/2019 Document Reviewed: 02/10/2017 [employer] Patient Education 2020 [employer]. Follow Up Care 07/29/2021 10:53:07 With:PHAN GUAJARDO, Zion Cruz, URL Address: [facility] [address] , [place] [address]- When: Unknown [facility] 11-21-2022 Evaluation note* Encounter Date Diagnosis Assessment Notes Treatment Notes Treatment Clinical Notes Jan, Hordeolum internum of right upper eyelid (ICD-10 - H00.021) warm compresses to eye for comfort and to help with healing. Use medication as directed. Follow up with primary care provider if symptoms persist or worsen, Hordeolum material was printed [facility] Other 07-22-2022 NotePROCEDURE: XR ELBOW LT MIN 3 VIEWS HISTORY: Pain of left elbow joint COMPARISON: None. FINDINGS: BONES:No fracture, acute abnormality, or significant arthropathy. SOFT TISSUES:No visible soft tissue swelling. EFFUSION:None visible. OTHER: Negative. IMPRESSION: 1. Normal examination. Electronically authenticated by: MISBAH DEGROOT Date: 2021-10-04 07:23[facility]06-30-2022 Evaluation note* Encounter Date Diagnosis Assessment Notes Treatment Notes Treatment Clinical Notes Aug, Folliculitis (ICD-10 - L73.9) Use medications as directed. If culture was obtained we will call with results. May try to apply warm compresses to area before applying meds daily. Follow up with primary care provider if no improvement of symptoms or if symptoms worsen or call office if no improvement of symptoms [facility] Other [id number] Hospital Discharge instructions Patient Education 07/29/2021 07:45:49 Kidney Stones Kidney Stones Kidney stones are solid, rock-like deposits that form inside of the kidneys. The kidneys are a pairof organs that make urine. A kidney stone may form in a kidney and move into other parts of the urinary tract, including the tubes that connect the kidneys to the bladder (ureters), the bladder, and the tube that carries urine out of the body (urethra). As the stone moves through these areas, it can cause intense pain and block the flow of urine. Kidney stones are created when high levels of certain minerals are found in the urine. The stones are usually passed out of the body through urination, but in some cases, medical treatment may be needed to remove them. What are the causes? Kidney stones may be caused by: A condition in which certain glands produce too much parathyroid hormone (primary hyperparathyroidism), which causes too much calcium buildup in the blood. A buildup of uric acid crystals in the bladder (hyperuricosuria). Uric acid is a chemical that the body produces when you eat certain foods. It usually exits the body in the urine. Narrowing (stricture) of one or both of the ureters. A kidney blockage that is present at (congenital obstruction). Past surgery on the kidney or the ureters, such as gastric bypass surgery. What increases the risk? The following factors may make you more likely to develop this condition: Having had a kidney stone in the past. Having a family history of kidney stones. Not drinking enough water. Eating a diet that is high in protein, salt (sodium), or sugar. Being overweight or obese. What are the signs or symptoms? Symptoms of a kidney stone may include: Pain in the side of the abdomen, right below the ribs (flank pain). Pain usually spreads (radiates)to the groin. Needing to urinate frequently or urgently. Painful urination. Blood in the urine (hematuria). Nausea. Vomiting. Fever and chills. How is this diagnosed? This condition may be diagnosed based on: Your symptoms and medical history. A physical exam. Blood tests. Urine tests. These may be done before and after the stone passes out of your body through urination. Imaging tests, such as a CT scan, abdominal X-ray, or ultrasound. A procedure to examine the inside of the bladder (cystoscopy). How is this treated? Treatment for kidney stones depends on the size, location, and makeup of the stones. Kidney stones will often pass out of the body through urination. You may need to: Increase your fluid intake to help pass the stone. In some cases, you may be given fluids through an IV and may need to be monitored at the hospital. Take medicine for pain. Make changes in your diet to help prevent kidney stones from coming back. Sometimes, medical procedures are needed to remove a kidney stone. This may involve: A procedure to break up kidney stones using: ?A focused beam of light (laser therapy). ?Shock waves (extracorporeal shock wave lithotripsy). Surgery to remove kidney stones. This may be needed if you have severe pain or have stones that block your urinary tract. Follow these instructions at home: Medicines Take vlzf-ldi-jcpiysa and prescription medicines only as told by your health care provider. Ask your health care provider if the medicine prescribed to you requires you to avoid driving or using heavy machinery. Eating and drinking Drink enough fluid to keep your urine pale yellow. You may be instructed to drink at least 8 10 glasses of water each day. This will help you pass the kidney stone. If directed, change your diet. This may include: ?Limiting how much sodium you eat. ?Eating more fruits and vegetables. ?Limiting how much animal protein such as red meat, poultry, fish, and eggs you eat. Follow instructions from your health care provider about eating or drinking restrictions. General instructions Collect urine samples as told by your health care provider. You may need to collect a urine sample: ?24 hours after you pass the stone. ?8 12 weeks after passing the kidney stone, and every 6 12 months after that. Strain your urine every time you urinate, for as long as directed. Use the strainer that your health care provider recommends. Do not throw out the kidney stone after passing it. Keep the stone so it can be tested by your health care provider. Testing the makeup of your kidney stone may help prevent you from getting kidney stones in the future. Keep all follow-up visits as told by your health care provider. This is important. You may need follow-up X-rays or ultrasounds to make sure that your stone has passed. How is this prevented? To prevent another kidney stone: Drink enough fluid to keep your urine pale yellow. This is the best way to prevent kidney stones. Eat a healthy diet and follow recommendations from your health care provider about foods to avoid. You may be instructed to eat a low-protein diet. Recommendations vary depending on the type of kidney stone that you have. Maintain a healthy weight. Where to find more information National Kidney Foundation (NKF): www.kidney.org U[employer] Foundation (UCF): www.urologyhealth.org Contact a health care provider if: You have pain that gets worse or does not get better with medicine. Get help right away if: You have a fever or chills. You develop severe pain. You develop new abdominal pain. You faint. You are unable to urinate. Summary Kidney stones are solid, rock-like deposits that form inside of the kidneys. Kidney stones can cause nausea, vomiting, blood in the urine, abdominal pain, and the urge to urinate frequently. Treatment for kidney stones depends on the size, location, and makeup of the stones. Kidney stones will often pass out of the body through urination. Kidney stones can be prevented by drinking enough fluids, eating a healthy diet, and maintaining a healthy weight. This information is not intended to replace advice given to you by your health care provider. Make sure you discuss any questions you have with your health care provider. Document Released: 03/02/2006 Document Revised: 07/19/2019 Document Reviewed: 07/19/2019 [employer] Patient Education 2019 [employer]. Follow Up Care 04/25/2021 12:43:58 With:Zion CHISHOLM MD, URL Address: [facility] [address] , [place] [address]- When: Unknown [facility] evaluation + Plan note Future Appointments Appointment Date:02/10/2022 09:45:00 AM Scheduled Provider:Zion CHISHOLM MD Location:[facility] Appointment Type:URO Office Visit Diagnostic Tests Pending * Electrolyte Panel 07/29/21 [facility] evaluation + Plan note Future Appointments Appointment Date:02/13/2023 10:45:00 AM Scheduled Provider:Zion CHISHOLM MD Location:[facility] Appointment Type:URO Office Visit [facility] evaluation noteNo assessment information available [facility] Work Phone: [facility] general Narrative - Reported* Type Description Date Medical History Kidney Stones Surgical History Hernia - Right Groin 1997 Surgical History tonsils removed Surgical History breast reduction 2016 Surgical History hernia above belly button 2016 Hospitalization History see above [facility] Other Histvzr general Narrative - Reported* Type Description Date Medical History Kidney Stones Surgical History Hernia - Right Groin 1997 Surgical History tonsils removed Surgical History breast reduction 2015 Surgical History hernia above belly button 2015 Surgical History kidney stones removal Surgical History hysterectomy Hospitalization History see above [facility] Other Hospital course Narrative No data available for this section [facility] progress note No data available for this section [facility] Summary Purpose Family History No Family History Records Found Relationship Condition Age at Onset Recorded Date/T hemalatha grandparent Malignant neoplasm of uterus Unknown Advance Directives No Advanced Directives Records FoundNo Advanced Directives Records FoundNo Advanced Directives Records FoundNo Advanced Directives Records FoundNo Advanced Directives Records FoundNo Advanced Directives Records FoundNo Advanced Directives Records Found Additional Source Comments INFORMATION SOURCE (unrecogn ized section and content) DATE CREATED AUTHOR 09/03/2017 [facility] DATE CREATED AUTHOR AUTHOR'S ORGANIZ ATION 09/03/2017 [facility] DATE CREATED AUTHOR [facility] DATE CREATED AUTHOR AUTHOR'S ORGANIZ ATION 09/09/2017 [facility] [place] DATE CREATED AUTHOR AUTHOR'S ORGANIZ ATION 08/22/2022 [facility] DATE CREATED AUTHOR AUTHOR'S ORGANIZ ATION 11/15/2022 [facility] DATE CREATED AUTHOR AUTHOR'S ORGANIZ ATION 09/16/2023 Don Villalobos [facility] REASON FOR VISIT (unrecogniz ed section and content) BUMP NEAR VAGINAL AREARIGHT EYE IRRITATION, WAITING IN BLACK TRAILBLAZER OUT FRONT CALL TO COME INLEFT EARACHE, WITH REBECCA Patient Care team informatio n (unrecognized section and content) Personnel Name: KYA SONIACHELSEA Address: Address: [address] [place] [address] Personnel Name: KYAJENNIFER SCOTT CHELSEA Holcomb Address: Address: [address] [place] [address] Goals (unrecognized section and content) Goals may be documented in a n alternate section FOR RECORDS PERTAINING TO PATIENTS WHO ARE OR HAVE BEEN ENROLLED IN A CHEMICAL DEPENDENCY/SUBSTANCEABUSE PROGRAM, SOME INFORMATION MAY BE OMITTED. This clinical summary was aggregated from multiple sources. Caution should be exercised in using it in the provision of clinical care. This summary normalizes information from multiple sources, and as a consequence, information in this document may materially change the coding, format and clinical context of patient data. In addition, data may be omitted in some cases. CLINICAL DECISIONS SHOULD BE BASED ON THE PRIMARY CLINICAL RECORDS. [facility] [employer] provides no warranty or guarantee of the accuracy or completeness of information in this document.
[2023-12-07 09:23] LABS: Basophils Percent Auto 0.3 % (0.2-2.0); Eosinophils Absolute Auto 0.1 10^3/uL (0.0-0.7); Hematocrit 41.9 % (36.0-48.0); Hemoglobin 14.1 g/dL (12.0-16.0); Immature Granulocytes Abs Auto 0.01 10^3/uL (0.00-0.03); Immature Granulocytes Pct Auto 0.1 % (0.0-0.5); Lymphocytes Absolute Auto 2.4 10^3/uL (1.2-3.8); Lymphocytes Percent Auto 31.3 % (20.5-60.0); Mean Corpuscular HGB Conc 33.7 g/dL (29.9-35.2); Mean Corpuscular Hemoglobin 30.5 pg (26.7-34.0); Mean Corpuscular Volume 90.5 fL (81.0-99.0); Mean Platelet Volume 9.3 fL (9.5-13.5); Monocytes Absolute Auto 0.5 10^3/uL (0.3-0.8); Monocytes Percent Auto 6.2 % (1.7-12.0); Neutrophils Absolute Auto 4.7 10^3/uL (1.4-6.5); Neutrophils Percent Auto 61.1 % (43.0-75.0); Platelet Count 310 10^3/uL (150-450); Red Blood Count 4.63 10^6/uL (4.20-5.40); Red Cell Distribution Width 12.1 % (11.0-15.0); White Blood Count 7.7 10^3/uL (4.0-11.0)
[2023-12-07 09:31] LABS: Estimated Average Glucose 105 mg/dL; Glycohemoglobin A1C 5.3 % (4.5-6.2)
[2023-12-07 09:44] LABS: Alanine Aminotransferase 27 U/L (14-59); Albumin Globulin Ratio 1.2; Albumin Level 3.6 g/dL (3.4-5.0); Alkaline Phosphatase 74 U/L (46-116); Anion Gap 11.4; Aspartate Amino Transferase 17 U/L (15-37); Bilirubin Total 0.9 mg/dL (0.2-1.0); Calcium 8.7 mg/dL (8.5-10.1); Carbon Dioxide 25.2 mmol/L (21.0-32.0); Chloride 104 mmol/L (98-107); Chol HDL Ratio 2.4; Cholesterol 123 mg/dL (<=200); Estimated GFR (African America >60 (>=60); Estimated GFR (Non-African Ame >60 (>=60); Free T3 2.87 pg/mL (2.18-3.98); Globulin 3.1 g/dL; Glucose 93 mg/dL (74-106); HDL Cholesterol 52 mg/dL (40-60); LDL Cholesterol Calculated 54.8 mg/dL; Potassium 3.6 mmol/L (3.5-5.1); Sodium 137 mmol/L (136-145); Thyroid Stimulating Hormone 0.881 uIU/mL (0.358-3.740); Total Protein 6.7 g/dL (6.4-8.2); Triglycerides 81 mg/dL (<=150); VLDL CHOLESTEROL 16.2 mg/dL
[2023-12-08 10:14] LABS: Insulin 10.1 uIU/mL (2.6-24.9)
== END 2023-12-07 08:24 | disposition home or self-care (01) ==
LOC: LAB 08:25
PROVIDERS: PCP Nurse Practitioner Family; Visit Provider Nurse Practitioner Family
DX: Z00.00 Encounter for general adult medical examination without abnormal findings (principal); E03.9 Hypothyroidism, unspecified
CPT/HCPCS: 36415; 80053; 80061; 83036; 83525; 84436; 84443; 84481; 85025